=== PATIENT | female | born 1960 | race Caucasian/White ===

== ENCOUNTER → 2023-04-14 08:37 | Outpatient (REF) | payer OTHER, SELFPAY | LOC: WDC 08:37 | PROVIDERS: ATTENDING PHYSICIAN Obstetrics & Gynecology; FAMILY PHYSICIAN Internal Medicine | DX: Z12.31 Encounter for screening mammogram for malignant neoplasm of breast (principal) | CPT/HCPCS: 77063; 77067 ==

== ENCOUNTER → 2023-04-21 09:21 | Outpatient (REF) | payer OTHER, SELFPAY | LOC: WDC 09:21 | PROVIDERS: ATTENDING PHYSICIAN Obstetrics & Gynecology; FAMILY PHYSICIAN Internal Medicine | DX: R92.8 Other abnormal and inconclusive findings on diagnostic imaging of breast (principal) | CPT/HCPCS: 76642 ==

== ENCOUNTER → 2023-12-15 10:25 | Outpatient (REF) | payer OTHER, SELFPAY | LOC: HWRAD 10:25 | PROVIDERS: ATTENDING PHYSICIAN Student in an Organized Health Care Education/Training Program | DX: M54.16 Radiculopathy, lumbar region (principal) | CPT/HCPCS: 72110; 73502; 73564 ==

== ENCOUNTER 2023-12-25 17:12 | Emergency (ER) | payer OTHER, SELFPAY ==
[2023-12-25 17:14] VITALS: BP 128/80
[2023-12-25 17:33] LABS: % Basophils 0.6 % (0-2); % Eosinophils 0.2 % (0-6); % Immature Granulocytes 0.2 % (0-0.5); % Lymphocytes 13.1 % (20.5-51.1); % Monocytes 9.1 % (1.7-9.3); % Neutrophils 76.8 % (42.2-75.2); Absolute Lymphocytes 0.9 10^3/uL (1.2-3.4); Absolute Monocytes 0.6 10^3/uL (0.1-0.6); Absolute Neutrophils 5.1 10^3/uL (1.4-6.5); Hematocrit 42.7 % (37.0-47.0); Hemoglobin 14.7 g/dL (12.0-16.0); Mean Corp Hgb Conc. 34.4 g/dL (33.0-37.0); Mean Corpuscular Volume 92.8 fL (81.0-99.0); Mean Platelet Volume 10.5 fL (7.4-10.4); Nucleated Red Blood Cells % 0 %; Platelet Count 239 10^3/uL (130-400); Red Cell Dist. Width 12.4 % (11.5-14.5); White Blood Cell Count 6.6 10^3/uL (4.8-10.8)
[2023-12-25 17:37] VITALS: BP 156/90
--- NOTE | 2023-12-25 17:44 | ED.GENMED ---
History of Present Illness
General
Chief Complaint: Fainting/Passed Out
Source: patient and spouse
Time Seen by Provider: 12/25/23 17:35
History of Present Illness
History of Present Illness:
63-year-old female presents to the emergency room for evaluation after having a syncopal episode at home. Patient has history of hypertrophic cardiomyopathy for which she has an ICD. She has been receiving Camzyos recently and has had a decrease
in some of the medications she is using. Patient had her COVID booster yesterday. She woke up this morning feeling malaise. She slept longer and stayed in bed in the morning. She was feeling weak so she called her to help her go to
bathroom. When she stood up she began to feel lightheaded and noted she was pale diaphoretic. Patient did not in fact pass out. Patient has had syncopal episodes in the past determined to be vasovagal in nature. Patient denies any chest
pain. She denies shortness of breath fever or chills.
Past History
Past History
ED Past Medical History: Other (hypertrophic cardiomyopathy)
ED Past Surgical History: Cardiac (pacemaker) and Other (cyst removal, knee surgery, uterine ablation)
Social History
Tobacco: Non-smoker
Alcohol: None
Drug: None
Personal:
Living: with family
Employment: Employed
Phy Exam
Physical Exam
Physical Exam:
General: Awake, Alert, Oriented X3. No acute distress.
Vitals: Mildly tachycardic
Head: Atraumatic
Eyes: Pupils equal, EOMI
Throat: Airway intact, no exudates
Neck: Trachea midline
Lungs: Clear and equal b/l
Heart: Regular rate, no murmurs
Abd: Soft, Nontender, No pulsatile mass
Neuro: Nonfocal
Skin: Warm, dry, no rash
Extremities: pulses equal b/l, no edema
Course
Orders/Labs/Results
Orders:
Orders
12/25/23 17:14
EKG [Electrocardiogram (*1)] Urgent
Reason for Study: Syncope
EKG- Treatment ONCE
12/25/23 17:23
Complete Blood Count/With Diff Urgent
Comprehensive Metabolic Panel Urgent
Troponin I Urgent
12/25/23 17:44
0.9% Sodium Chloride 500 ml [Nss] 500 ml IV BOLUS
12/25/23 19:41
Electrocardiogram (*1) Urgent
Reason for Study: Syncope
EKG- Treatment ONCE
12/25/23 20:00
Troponin I Urgent
Abnormal Lab Results
12/25/23 12/25/23
17:23 20:00
MCH 32.0 H pg
(27.0-31.0)
MPV 10.5 H fL
(7.4-10.4)
Absolute Lymphs (auto) 0.9 L 10^3/uL
(1.2-3.4)
Neutrophils % 76.8 H %
(42.2-75.2)
Lymphocytes % 13.1 L %
(20.5-51.1)
Glucose 108 H mg/dl
(70-99)
ALT 42 H U/L
(0-35)
Troponin I 0.053 H* ng/ml 0.055 H* ng/ml
12/25/23 17:23
12/25/23 17:23
Vital Signs
Initial and Last Documented VS:
Initial Vital Signs
Pulse Resp BP Pulse Ox
108 16 128/80 97
12/25/23 17:14 12/25/23 17:14 12/25/23 17:14 12/25/23 17:14
Last Documented Vital Signs
Temp Pulse Resp BP Pulse Ox
98.8 F 93 20 131/74 95
12/25/23 17:15 12/25/23 20:45 12/25/23 20:45 12/25/23 20:00 12/25/23 20:45
MDM/Problems Addressed
Differential Diagnosis Includes:
Vasovagal syncope, cardiac dysrhythmia, anemia
MDM/Problems Addressed:
Patient presents after what sounds ago vasovagal syncope event. Patient denies chest pain, shortness of breath. No pleuritic type chest pain. She does have cardiomyopathy with an ICD. Device was interrogated. There was no dysrhythmia. Patient
had a troponin which was mildly elevated at 0.053. Repeat troponin 2-1/2 hours later is essentially unchanged at 0.055 discussed patient's presentation with Dr. Hoff. He agrees that the troponin elevation is likely related to her cardiomyopathy
particular given the fact she has no chest pain and her the patient had no dysrhythmia. Stable for discharge home and outpatient follow-up.
*Pulse Oximetry
Patient hypoxic: no
*EKG
Interpreted by ED Provider?: Yes
Interpretation: abnormal
Heart Rate: 104
Rate: tachycardiac
Rhythm: sinus tachycardia
[place]: normal axis
Interval: normal interval
Ischemia: non-specific ST changes
*Clinic Scheduler Interpretation
Rate: tachycardiac
Heart Rate: 104
Rhythm: sinus tachycardia
*Critical Care Note
Total Time (30-74mins, 75-104mins- exclusive of procedures): Not Applicable
Patient Management
Social determinants of health affecting care: Strong social support
ED Attending Note
-
Portions of this chart may have been created with voice recognition software.� Occasional wrong word or��sound alike� substitutions may have occurred due to the inherent limitations of voice recognition software.
Discharge Plan
Departure
Patient Disposition: Home (Routine Discharge)
Date of Disposition: 12/25/23
Time of Disposition: 21:04
Patient with high blood pressure during this ER visit?: No
Condition: Good
Discharge Problem:
Syncope
Instructions: Syncope (Fainting) (DC)
Prescriptions:
No Action
disopyramide phosphate 100 MG capsule
100 mg PO TID@0630,1230,2130
Patient Comments:
pt was just given med yesterday and did not start yet
magnesium oxide 500 MG tablet
500 mg PO HS
montelukast 10 MG tablet
10 mg PO HS
Centrum Silver 1 EACH tablet
1 ea PO DAILY
verapamil 120 MG tablet extended release
120 mg PO DAILY@1800
verapamil 240 MG tablet extended release
240 mg PO DAILY
cholecalciferol (vitamin D3) 2,000 UNIT tablet
200 mg PO HS
cyclobenzaprine 5 mg tablet
5 mg PO TID PRN (Reason: muscle spasm) Qty: 7 0RF
oxycodone-acetaminophen [Percocet] 5-325 mg tablet
1 tab PO Q6H PRN (Reason: pain) Qty: 3 0RF
Referrals:
Leora Baca MD, Resident [Family Provider] -
Activity Restrictions/Additional Instructions:
We interrogated your ICD and you did not have any heart rhythm problems. Your blood work showed a very mildly elevated troponin which did not knife changer time. I believe this is normal for you. I recommend calling your primary computer numerical control machinist to let
them know you had this episode and see if there is anything else they would want to do.
Interventions
Interventions:
*Risk Screen - Suicide Last Done: 12/25/23 17:58
*General Assessment Last Done: 12/25/23 17:58
*Neglect/Abuse Screening Last Done: 12/25/23 17:58
ED- Fall Risk Assessment Last Done: 12/25/23 21:16
*ED COVID-19 Vaccine History Last Done: 12/25/23 17:18
*Nursing Disposition Last Done: 12/25/23 21:16
ED- Cardiac Assessment Last Done: 12/25/23 17:58
ED- Neurological Assessment Last Done: 12/25/23 17:58
Discharge Date and Time
Discharge Date/Time: 12/25/23 21:17
Print Language: [place]
[2023-12-25 17:46] LABS: ALT (SGPT) 42 U/L (0-35); AST (SGOT) 36 U/L (14-36); Albumin 4.6 g/dl (3.5-5.0); Alkaline Phosphatase 108 U/L (38-126); Blood Urea Nitrogen 17 mg/dl (7-17); Calcium 9.4 mg/dl (8.4-10.2); Carbon Dioxide 23 mmol/L (22-30); Chloride 102 mmol/L (98-107); Glucose 108 mg/dl (70-99); Potassium 4.4 mmol/L (3.5-5.1); Sodium 139 mmol/L (135-145); Total Bilirubin 0.5 mg/dl (0.2-1.3); Total Protein 7.4 g/dl (6.3-8.2); eGFR > 60.00
[2023-12-25] MEDS: NSS 500 IV (17:56)
[2023-12-25 18:00] VITALS: BP 161/146
[2023-12-25 18:05] LABS: Troponin I 0.053 ng/ml
[2023-12-25 19:00] VITALS: BP 130/70
[2023-12-25 20:00] VITALS: BP 131/74
[2023-12-25 20:33] LABS: Troponin I 0.055 ng/ml
== END 2023-12-25 21:17 | disposition home or self-care (01) ==
LOC: EMR 17:12
PROVIDERS: EMERGENCY PHYSICIAN Emergency Medicine; FAMILY PHYSICIAN Student in an Organized Health Care Education/Training Program
DX: R55 Syncope and collapse (principal); I42.2 Other hypertrophic cardiomyopathy; Z95.810 Presence of automatic (implantable) cardiac defibrillator
CPT/HCPCS: 93288; 99284; 96360; 80053; 84484; 85025; 93005

== ENCOUNTER 2024-02-01 08:47 | Outpatient (RCR) | payer OTHER, SELFPAY | END 2024-02-01 23:59 | disposition home or self-care (01) | LOC: RPT 08:47 | PROVIDERS: ATTENDING PHYSICIAN Student in an Organized Health Care Education/Training Program | DX: M54.16 Radiculopathy, lumbar region (principal); Z73.6 Limitation of activities due to disability; R26.89 Other abnormalities of gait and mobility | CPT/HCPCS: 97110; 97162 ==

== ENCOUNTER 2024-02-29 09:04 | Outpatient (RCR) | payer OTHER, SELFPAY | END 2024-02-29 23:59 | disposition home or self-care (01) | LOC: RPT 09:04 | PROVIDERS: ATTENDING PHYSICIAN Student in an Organized Health Care Education/Training Program | DX: M54.16 Radiculopathy, lumbar region (principal); Z73.6 Limitation of activities due to disability; R26.89 Other abnormalities of gait and mobility | CPT/HCPCS: 97110; 97140 ==

== ENCOUNTER → 2024-04-19 08:37 | Outpatient (REF) | payer OTHER, SELFPAY | LOC: WDC 08:37 | PROVIDERS: ATTENDING PHYSICIAN Student in an Organized Health Care Education/Training Program; REFERRING PHYSICIAN Obstetrics & Gynecology | DX: Z12.31 Encounter for screening mammogram for malignant neoplasm of breast (principal) | CPT/HCPCS: 77063; 77067 ==

== ENCOUNTER → 2024-07-21 10:18 | Outpatient (REF) | payer OTHER, SELFPAY | LOC: WDC 10:18 | DX: N63.20 Unspecified lump in the left breast, unspecified quadrant (principal); N63.22 Unspecified lump in the left breast, upper inner quadrant | CPT/HCPCS: 76642; 77061; 77065 ==

== ENCOUNTER → 2024-08-18 10:05 | Outpatient (REF) | payer OTHER, SELFPAY | LOC: WDC 10:05 | PROVIDERS: ATTENDING PHYSICIAN Student in an Organized Health Care Education/Training Program | DX: N63.11 Unspecified lump in the right breast, upper outer quadrant (principal) | CPT/HCPCS: 76642; 77061; 77065 ==